=== PATIENT | male | born 1975 | race Caucasian/White ===

== ENCOUNTER 2017-09-24 19:04 | Emergency (ER) | payer OTHER ==
[~2017-09-24] VITALS: Ht 180.3 cm; Wt 86.2 kg
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
[2017-09-24 19:46] VITALS: BP 158/95
--- NOTE | 2017-09-24 20:11 | RADIOLOGY REPORT ---
EXAMINATION: XR HAND, LEFT CLINICAL INFORMATION: Puncture wound in the left fifth digit. COMPARISON: None TECHNIQUE: PA, lateral, and oblique views of the left hand. FINDINGS: There is no fracture or dislocation. Alignment is anatomic. Joint spaces are maintained. No radio opaque foreign bodies are visualized. IMPRESSION: No fracture or dislocation. No radio opaque foreign body.
[2017-09-24] MEDS ORDERED: BACTRIM DS TAB1 EACH PO (20:28)
[2017-09-24] MEDS ORDERED: PERCOCET 5-3251 EACH PO (20:28)
[2017-09-24] MEDS ORDERED: IBUPROFEN800 M1 PO (20:28)
[2017-09-24] MEDS ORDERED: KEFLEX500 M1 PO (20:28)
== END 2017-09-24 20:37 ==
LOC: ERH 19:04
DX: S61.432A Puncture wound without foreign body of left hand, initial encounter (principal); B20 Human immunodeficiency virus [HIV] disease; W45.0XXA Nail entering through skin, initial encounter; Y92.9 Unspecified place or not applicable; Y93.9 Activity, unspecified
CPT/HCPCS: 73130-LT; 90471